=== PATIENT | male | born 1995 | race Two or more races ===

== ENCOUNTER 2021-01-22 21:46 | Emergency (ER) | payer OTHER ==
[2021-01-22 21:59] VITALS: TEMP 98.6; BMI 18.8
[2021-01-22] MEDS ORDERED: ACETAMINOPHEN 325 MG TABLET (FP) PO ONE (22:49)
[2021-01-22] MEDS ORDERED: MAG HYDROX/AL HYDROX/SIMETH 30 ML UNIT-DOSE CUP PO ONE (22:49)
[2021-01-22] MEDS ORDERED: FAMOTIDINE 10 MG TABLET PO ONE (22:49)
[2021-01-22] MEDS ORDERED: ACETAMINOPHEN 325 MG TABLET (FP) ONE (23:10)
[2021-01-22] MEDS ORDERED: FAMOTIDINE 10 MG TABLET ONE (23:10)
[2021-01-22] MEDS ORDERED: MAG HYDROX/AL HYDROX/SIMETH 30 ML UNIT-DOSE CUP ONE (23:11)
[2021-01-22 23:47] LABS: BASO % 0.8 % (0-2.0); EOS % 1.4 % (0-4.5); HEMATOCRIT 42.2 % (35.4-49); HEMOGLOBIN 14.4 GM/dL (11.7-16.9); LYMPH % 19.6 % (8-40); MCH 29.5 pg (25.7-33.7); MCHC 34.1 g/dl (32.0-35.9); MEAN CELL VOLUME 86.7 fl (80-96); MEAN PLT VOLUME 8.3 fl (7.5-11.1); MONO % 7.7 % (3.8-10.2); NEUT % 70.5 % (42.8-82.8); PLATELET COUNT 222 10^3/uL (134-434); RBC 4.87 M/mm3 (4.00-5.60); RDW 13.3 % (11.9-15.9); WHITE BLOOD COUNT 10.6 K/mm3 (4.0-10.0)
[2021-01-23 00:14] LABS: CHLORIDE 105 mmol/L (98-107); SODIUM 141 mmol/L (136-145)
[2021-01-23 00:16] LABS: CALCIUM 9.5 mg/dL (8.5-10.1)
[2021-01-23 00:17] LABS: ALBUMIN 4.3 g/dl (3.4-5.0); ANION GAP 10 MMOL/L (8-16); BLOOD UREA NITROGEN 11.4 mg/dL (7-18); CO2 26 mmol/L (21-32); GLUCOSE,RANDOM 88 mg/dL (74-106)
[2021-01-23 00:21] LABS: CREATININE 0.8 mg/dL (0.55-1.3); SGOT/AST 17 U/L (15-37); SGPT/ALT 18 U/L (13-61); TOT PROT 7.4 g/dl (6.4-8.2)
[2021-01-23 00:22] LABS: ALK PHOS 53 U/L (45-117)
[2021-01-23] MEDS ORDERED: POTASSIUM CHLORIDE TABS 20 MEQ TABLET.ER (FP) PO ONE ×2 (00:27→00:46)
[2021-01-23 00:57] VITALS: BP 112/82; PULSE 67
== END 2021-01-23 00:55 | disposition home or self-care (01) ==
LOC: JER 21:46
DX: E87.6 Hypokalemia (principal); K29.70 Gastritis, unspecified, without bleeding
CPT/HCPCS: 36415; 71046-TC-FY; 80053; 82550; 84484; 85025; 93005; 93010; 99285-25